=== PATIENT | female | born 1975 | race Caucasian/White ===

== ENCOUNTER 2024-05-01 09:55 | Inpatient (IN) ==
[2024-05-01] MEDS ORDERED: IOPAMIDOL 100 ML BOTTLE IV ONE (09:56)
[2024-05-01] MEDS ORDERED: KETOROLAC 60 MG/2 ML VIAL IM ONE (10:20)
[2024-05-01] MEDS: 0.9 % SODIUM CHLORIDE 1,000 ML IV ONE ×3 (10:43→17:44)
[2024-05-01] MEDS: KETOROLAC 30 MG/ML VIAL IV ONE (10:44)
[2024-05-01 11:46] LABS: Basophils # (Auto) 0.01 K/mcL (0.00-0.30); Basophils % (Auto) 0.1 % (0.0-2.0); Eosinophils # (Auto) 0.01 K/mcL (0.00-0.70); Eosinophils % (Auto) 0.1 % (0.0-7.0); Lymphocytes % (Auto) 5.5 % (15.5-49.0); Mean Cell Volume 96.3 fL (80.0-100.0); Mean Corpuscular HGB Conc 33.3 g/dL (31.0-36.0); Mean Platelet Volume 9.4 fL (8.8-12.5); Monocytes # (Auto) 2.36 K/mcL (0.10-0.90); Monocytes % (Auto) 13.1 % (1.0-12.0); Neutrophils % (Auto) 80.8 % (38.0-78.0); Platelet Count 259 K/mcL (140-440); RBC 3.74 M/mcL (3.59-5.38); Red Cell Distribution Width 12.8 % (11.5-14.5); WBC 18.1 K/mcL (4.5-11.0)
[2024-05-01 12:12] LABS: ALT/SGPT 32 U/L (<40); AST/SGOT 28 U/L (<32); Albumin 3.2 gm/dL (3.2-5.2); Albumin/Globulin Ratio 1.2 (1.0-2.3); Alkaline Phosphatase 88 U/L (39-117); Bilirubin,Total 0.4 mg/dL (0.1-1.0); Blood Urea Nitrogen 9 mg/dL (6-20); Calcium 8.1 mg/dL (8.6-10.4); Carbon Dioxide 22 mmol/L (22-30); Chloride 103 mmol/L (96-108); Globulin 2.7 gm/dL (2.2-3.7); Glomerular Filtration Rate 102; Glucose 142 mg/dL (70-105); Potassium 3.2 mmol/L (3.3-5.1); Sodium 135 mmol/L (133-145)
[2024-05-01 12:37] LABS: Appearance,Urine Cloudy (Clear); Bacteria,Urine Many /hpf (0); Bilirubin,Urine Negative (Negative); Color,Urine Yellow; Culture Indicated,Urine Yes; Glucose,Urine (UA) Negative (Negative); Ketones,Urine 40 mg/dL (Negative); Leukocyte Esterase,Urine Moderate /uL (Negative); Nitrate,Urine Negative (Negative); Protein,Urine 30 mg/dL (Negative); Urine Blood Trace-intact ery/mcL (Negative); Urine RBC > 182 /hpf (0-1); Urine Squamous Epithelial Cell 2 /hpf (0-4); Urine WBC > 182 /hpf (0-4); Urobilinogen,Urine Normal
[2024-05-01] MEDS: cefTRIAXone 1 GM VIAL IV ONE ×2 (14:20→17:51)
[2024-05-01] MEDS: morphine 2 MG/ML VIAL IV ONE (14:41)
[2024-05-01] MEDS: ONDANSETRON 4 MG/2 ML VIAL IV ONE (14:42)
[2024-05-01] MEDS: POTASSIUM CHLORIDE 20 MEQ TABLET PO ONE ×2 (15:15→15:33)
[2024-05-01] MEDS: LORazepam 2 MG/ML VIAL IV ONE (16:09)
[2024-05-01 16:35] LABS: Amphetamine Screen,Urine Suspect positive; Barbiturate Screen,Urine None detected; Benzodiazepines Screen,Urine None detected; Cannabinoid Screen,Urine None detected; Cocaine Screen,Urine None detected; Opiate Screen,Urine None detected; Oxycodone, Urine Screen None detected; Phencyclidine Screen,Urine None detected
[2024-05-01] MEDS: ACETAMINOPHEN 1,000 MG/100 ML BAG IV PRN (17:30)
[2024-05-01] MEDS ORDERED: LACTULOSE 20 GM/30 ML ORAL.SOL PO PRN (17:36)
[2024-05-01] MEDS: LORazepam 2 MG/ML VIAL IV PRN (17:51)
[2024-05-01] MEDS: LORazepam 2 MG/ML VIAL ONE (18:40)
[2024-05-01] MEDS: 0.9 % SODIUM CHLORIDE 1,000 ML IV SCH (18:41)
[2024-05-01] MEDS: 0.9 % SODIUM CHLORIDE 10 ML SYRINGE IV SCH (20:30)
[2024-05-01] MEDS: DOCUSATE SODIUM 100 MG CAPSULE PO SCH (23:08)
[2024-05-02] MEDS: HYDROmorphone 0.5 MG/0.5 ML SYRINGE IV PRN (00:30)
[2024-05-02 05:56] LABS: Basophils # (Auto) 0.01 K/mcL (0.00-0.30); Basophils % (Auto) 0.1 % (0.0-2.0); Eosinophils # (Auto) 0.01 K/mcL (0.00-0.70); Eosinophils % (Auto) 0.1 % (0.0-7.0); Hematocrit 34.9 % (34.1-44.9); Hemoglobin 11.1 g/dL (11.2-15.7); Lymphocytes % (Auto) 12.9 % (15.5-49.0); Mean Cell Volume 98.9 fL (80.0-100.0); Mean Corpuscular HGB Conc 31.8 g/dL (31.0-36.0); Mean Platelet Volume 9.7 fL (8.8-12.5); Monocytes # (Auto) 1.91 K/mcL (0.10-0.90); Monocytes % (Auto) 12.9 % (1.0-12.0); Neutrophils % (Auto) 73.8 % (38.0-78.0); Platelet Count 263 K/mcL (140-440); RBC 3.53 M/mcL (3.59-5.38); Red Cell Distribution Width 13.3 % (11.5-14.5); WBC 14.8 K/mcL (4.5-11.0)
[2024-05-02 06:29] LABS: ALT/SGPT 20 U/L (<40); AST/SGOT 21 U/L (<32); Albumin 2.8 gm/dL (3.2-5.2); Alkaline Phosphatase 95 U/L (39-117); Bilirubin,Direct < 0.2 mg/dL (0-0.3); Bilirubin,Total 0.2 mg/dL (0.1-1.0); Blood Urea Nitrogen 7 mg/dL (6-20); Calcium 7.6 mg/dL (8.6-10.4); Carbon Dioxide 21 mmol/L (22-30); Chloride 106 mmol/L (96-108); Globulin 2.7 gm/dL (2.2-3.7); Glomerular Filtration Rate 102; Glucose 89 mg/dL (70-105); Lactate Dehydrogenase 154 U/L (135-225); Phosphorous 2.4 mg/dL (2.5-4.5); Potassium 3.6 mmol/L (3.3-5.1); Sodium 136 mmol/L (133-145); Triglycerides 141 mg/dL (<150); Uric Acid 2.3 mg/dL (2.5-8.0)
[2024-05-02] MEDS: ACETAMINOPHEN 325 MG TABLET PO PRN (09:20)
[2024-05-02] MEDS: ENOXAPARIN 40 MG/0.4 ML SYRINGE SQ SCH (09:21)
[2024-05-02] MEDS: HYDROcodone/APAP 5/325MG TABLET PO PRN (12:15)
[2024-05-02] MEDS: cefTRIAXone 2 GM in DEXTROSE 5% IN WATER 50 ML IV SCH (12:22)
[2024-05-02] MEDS: KETOROLAC 15 MG/ML VIAL IV PRN (12:37)
[2024-05-02] MEDS: ONDANSETRON 4 MG/2 ML VIAL IV PRN (18:14)
[2024-05-02] MEDS: SENNOSIDES 1 TABLET PO PRN (20:04)
[2024-05-02] MEDS: SUMAtriptan SUCCINATE 50 MG TABLET PO ONE (20:33)
[2024-05-03 06:40] LABS: Basophils # (Auto) 0.02 K/mcL (0.00-0.30); Basophils % (Auto) 0.2 % (0.0-2.0); Eosinophils # (Auto) 0.03 K/mcL (0.00-0.70); Eosinophils % (Auto) 0.4 % (0.0-7.0); Hematocrit 37.7 % (34.1-44.9); Hemoglobin 12.2 g/dL (11.2-15.7); Lymphocytes # (Auto) 0.89 K/mcL (1.50-4.80); Lymphocytes % (Auto) 10.8 % (15.5-49.0); Mean Cell Volume 95.9 fL (80.0-100.0); Mean Corpuscular HGB Conc 32.4 g/dL (31.0-36.0); Mean Platelet Volume 9.3 fL (8.8-12.5); Monocytes # (Auto) 0.96 K/mcL (0.10-0.90); Monocytes % (Auto) 11.6 % (1.0-12.0); Neutrophils % (Auto) 76.8 % (38.0-78.0); Platelet Count 295 K/mcL (140-440); RBC 3.93 M/mcL (3.59-5.38); Red Cell Distribution Width 13.1 % (11.5-14.5); WBC 8.3 K/mcL (4.5-11.0)
[2024-05-03] MEDS: diphenhydrAMINE 50 MG/ML VIAL IV PRN (11:36)
[2024-05-03] MEDS: SUMAtriptan SUCCINATE 50 MG TABLET PO PRN (11:36)
[2024-05-03] MEDS: METOCLOPRAMIDE 10 MG/2 ML VIAL IV PRN (11:36)
[2024-05-03] MEDS ORDERED: LORazepam 2 MG/ML VIAL IV PRN (20:45)
[2024-05-04 06:00] LABS: Basophils # (Auto) 0.03 K/mcL (0.00-0.30); Basophils % (Auto) 0.4 % (0.0-2.0); Eosinophils # (Auto) 0.16 K/mcL (0.00-0.70); Eosinophils % (Auto) 2.1 % (0.0-7.0); Hematocrit 35.1 % (34.1-44.9); Hemoglobin 11.4 g/dL (11.2-15.7); Lymphocytes # (Auto) 2.39 K/mcL (1.50-4.80); Mean Cell Volume 95.6 fL (80.0-100.0); Mean Corpuscular HGB Conc 32.5 g/dL (31.0-36.0); Mean Platelet Volume 9.2 fL (8.8-12.5); Monocytes # (Auto) 1.14 K/mcL (0.10-0.90); Monocytes % (Auto) 14.8 % (1.0-12.0); Neutrophils % (Auto) 51.2 % (38.0-78.0); Platelet Count 325 K/mcL (140-440); RBC 3.67 M/mcL (3.59-5.38); Red Cell Distribution Width 13.2 % (11.5-14.5); WBC 7.7 K/mcL (4.5-11.0)
[2024-05-04 07:06] LABS: ALT/SGPT 46 U/L (<40); AST/SGOT 59 U/L (<32); Albumin 2.8 gm/dL (3.2-5.2); Albumin/Globulin Ratio 0.9 (1.0-2.3); Alkaline Phosphatase 179 U/L (39-117); Bilirubin,Direct < 0.2 mg/dL (0-0.3); Bilirubin,Total 0.3 mg/dL (0.1-1.0); Blood Urea Nitrogen 8 mg/dL (6-20); Calcium 8.1 mg/dL (8.6-10.4); Carbon Dioxide 26 mmol/L (22-30); Chloride 102 mmol/L (96-108); Globulin 3.1 gm/dL (2.2-3.7); Glomerular Filtration Rate 102; Glucose 100 mg/dL (70-105); Lactate Dehydrogenase 205 U/L (135-225); Phosphorous 3.8 mg/dL (2.5-4.5); Potassium 3.7 mmol/L (3.3-5.1); Sodium 138 mmol/L (133-145); Triglycerides 151 mg/dL (<150); Uric Acid 2.4 mg/dL (2.5-8.0)
[2024-05-04] MEDS ORDERED: ACETAMINOPHEN 325 MG TABLET PO PRN (10:16)
[2024-05-04] MEDS: KETOROLAC 15 MG/ML VIAL IV PRN (10:32)
[2024-05-04 13:54] LABS: HCG,Serum Negative
[2024-05-04 14:58] LABS: proBNP 599.8 pg/mL (<125.0)
[2024-05-04] MEDS: ALBUTEROL SULFATE 2.5 MG/3 ML NEBULIZER NEB PRN (17:25)
[2024-05-04] MEDS: BENZONATATE 100 MG CAPSULE PO PRN (17:26)
[2024-05-10 07:09] LABS: Amphetamine Screen Positive
== END 2024-05-05 13:30 | disposition home or self-care (01) | DRG 872 ==
LOC: ED 09:55 → ICU 17:15 → MEDSUR 05-04 14:30
PROVIDERS: ADMIT Internal Medicine; ATTEND Internal Medicine